=== PATIENT | male | born 1965 | race African-American/Black ===

== ENCOUNTER 2023-10-09 06:25 | Day surgery (SDC) | payer MEDICARE ==
[2023-10-08 09:12] VITALS: BMI 31.0
[2023-10-09] MEDS ORDERED: Dexamethasone 20 MG/5 ML VIAL ONE (06:54)
[2023-10-09] MEDS ORDERED: PROPOFOL 40 ML ONE (06:54)
[2023-10-09] MEDS ORDERED: fentaNYL PF 100 MCG/2 ML SYRINGE ONE (06:54)
[2023-10-09] MEDS ORDERED: Ondansetron PF 4 MG/2 ML Vial ONE (06:54)
[2023-10-09] MEDS ORDERED: Lidocaine 1% PF 5 ML VIAL ONE (06:54)
[2023-10-09] MEDS ORDERED: EPINEPHrine 1 MG/ML VIAL ONE (07:40)
[2023-10-09] MEDS ORDERED: SUGAMMADEX SODIUM 200 MG/2 ML VIAL ONE (08:02)
[2023-10-09] MEDS ORDERED: Rocuronium Bromide 10 MG/ML (10ML VIAL) ONE (08:02)
== END 2023-10-09 09:55 | disposition home or self-care (01) ==
LOC: SDC 06:25
PROVIDERS: ATTEND Otolaryngology Plastic Surgery within the Head & Neck
PROC: 0CBV8ZX Excision of Left Vocal Cord, Via Natural or Artificial Opening Endoscopic, Diagnostic (ICD-10-PCS; principal; 2023-10-09)
DX: J38.00 Paralysis of vocal cords and larynx, unspecified (principal); J38.3 Other diseases of vocal cords; J38.2 Nodules of vocal cords; J34.3 Hypertrophy of nasal turbinates; H91.90 Unspecified hearing loss, unspecified ear; G40.909 Epilepsy, unspecified, not intractable, without status epilepticus; E78.00 Pure hypercholesterolemia, unspecified; E11.9 Type 2 diabetes mellitus without complications; F41.9 Anxiety disorder, unspecified; F32.A Depression, unspecified; Z98.890 Other specified postprocedural states; Z79.899 Other long term (current) drug therapy
CPT/HCPCS: 31536; 93005; J0171; J1100; J2405; J2704; 88305; 93010

== ENCOUNTER 2023-12-09 21:55 | Inpatient (IN) | payer MEDICARE ==
[2023-12-09 23:30] VITALS: BMI 31.8
[2023-12-10] MEDS ORDERED: Acetaminophen 325 MG TAB PO PRN (00:37)
[2023-12-10] MEDS ORDERED: Acetaminophen 650 MG Suppository PR PRN (00:37)
[2023-12-10] MEDS ORDERED: Ondansetron PF 4 MG/2 ML Vial IVP PRN (00:37)
[2023-12-10] MEDS ORDERED: Ondansetron ODT 4 MG TAB PO PRN (00:37)
[2023-12-10] MEDS: QUEtiapine 100 MG TAB PO SCH ×2 (00:55→08:13)
[2023-12-10] MEDS: OXcarbazepine 150 MG TAB PO SCH ×2 (00:55→09:45)
[2023-12-10] MEDS: levETIRAcetam 500 MG TAB PO SCH ×2 (00:55→09:45)
[2023-12-10] MEDS: Enoxaparin 100 MG (1 mL) SYRINGE SC SCH ×2 (00:56→08:13)
[2023-12-10] MEDS: traZODone HCl 50 MG TAB PO SCH ×2 (01:03→21:24)
[2023-12-10] MEDS ORDERED: Glucagon 1 MG/ML KIT IM PRN (02:58)
[2023-12-10] MEDS ORDERED: Insulin Lispro 100 UNIT/ML 10 ML VIAL SC PRN ×2 (02:58)
[2023-12-10] MEDS ORDERED: Dextrose 50% Abboject 50 ML SYRINGE SLOW IVP PRN (02:58)
[2023-12-10] MEDS ORDERED: Dextrose 5% in Water 1,000 ML IV PRN (02:58)
[2023-12-10 07:00] LABS: #Basophils Less than 0.03 10x3/uL (0.0-0.2); %Basophils 0.2 % (0.0-1.0); %Eosinophils 0.9 % (0.0-10.0); %Lymphocytes 41.6 % (21.0-51.0); %Monocytes 12.9 % (0.0-10.0); %Neutrophils 44.2 % (42.0-75.0); Hematocrit 37.9 % (42.0-52.0); Hemoglobin 12.9 g/dL (14.0-18.0); Mean Corpuscular Hemoglobin 30.4 pg (27.0-31.0); Mean Corpuscular Volume 89.4 fL (78.0-98.0); Mean Platelet Volume 9.3 fL (7.4-10.4); Platelet Count 192 10x3/uL (130-400); RBC Distribution Width 13.4 % (11.5-14.5); Red Blood Cell (RBC) Count 4.24 mill/uL (4.70-6.10)
[2023-12-10 07:31] LABS: Anion Gap 13 mmol/L (10-20); BUN (Urea Nitrogen) 8 mg/dL (8.4-25.7); Calc. Creatinine Clearance 102 mL/min (70-130); Calcium 9.4 mg/dL (7.8-10.44); Carbon Dioxide 23 mmol/L (22-29); Chloride 105 mmol/L (98-107); Estimated GFR 77; Glucose 125 mg/dL (70-105); Potassium 4.1 mmol/L (3.5-5.1); Sodium 137 mmol/L (136-145)
[2023-12-10] MEDS: Lisinopril 5 MG TAB PO SCH (08:13)
[2023-12-10] MEDS ORDERED: metFORMIN 500 MG TAB PO PRN (08:40)
[2023-12-10] MEDS ORDERED: Non-Formulary Item 1 EACH (Hydroxyzine Hcl [Hydroxyzine Hcl] 50 MG Tablet) PO PRN (08:40)
[2023-12-10] MEDS ORDERED: Non-Formulary Item 1 EACH (Sertraline Hcl [Sertraline Hcl] 50 MG Tablet) PO SCH (09:00)
[2023-12-10] MEDS: Pantoprazole DR 40 MG TAB PO SCH (09:03)
[2023-12-10] MEDS: Sertraline 25 MG TAB PO SCH (09:03)
[2023-12-10] MEDS: Escitalopram Oxalate 10 mg Tablet PO SCH (09:04)
[2023-12-10] MEDS: Atorvastatin Calcium 10 MG TAB PO SCH (21:22)
[2023-12-10] MEDS: hydrOXYzine 25 MG TAB PO PRN (21:25)
[2023-12-11 07:27] VITALS: BP 139/80; TEMP 98.3
[2023-12-11 07:38] LABS: Hemoglobin 13.3 g/dL (14.0-18.0); Mean Corpuscular HGB CONC 34.1 g/dL (32.0-36.0); Mean Corpuscular Hemoglobin 30.8 pg (27.0-31.0); Mean Corpuscular Volume 90.3 fL (78.0-98.0); Mean Platelet Volume 9.6 fL (7.4-10.4); Platelet Count 203 10x3/uL (130-400); RBC Distribution Width 13.5 % (11.5-14.5); Red Blood Cell (RBC) Count 4.32 mill/uL (4.70-6.10)
[2023-12-11 07:51] LABS: INR-International Normal Ratio 1.1; PTT 41.2 sec (22.9-36.1)
[2023-12-11 07:53] LABS: D-Dimer Test 3.62 mcg/mL (0.27-0.43)
[2023-12-11 08:00] LABS: Anion Gap 14 mmol/L (10-20); BUN (Urea Nitrogen) 11 mg/dL (8.4-25.7); Calc. Creatinine Clearance 105 mL/min (70-130); Calcium 9.5 mg/dL (7.8-10.44); Carbon Dioxide 25 mmol/L (22-29); Chloride 104 mmol/L (98-107); Estimated GFR 81; Glucose 112 mg/dL (70-105); Potassium 4.1 mmol/L (3.5-5.1); Sodium 139 mmol/L (136-145)
[2023-12-11] MEDS ORDERED: OXcarbazepine 150 MG TAB PO SCH (09:00)
[2023-12-11] MEDS ORDERED: levETIRAcetam 500 MG TAB PO SCH (09:00)
[2023-12-11] MEDS ORDERED: QUEtiapine 100 MG TAB PO SCH (21:00)
[2023-12-12 19:36] LABS: Protein C Activity 102 % (78-152)
[2023-12-12 20:14] LABS: HEX PHOS LA Tube 1 54.1 SEC; HEX PHOS LA Tube 2 45.5 SEC; Hexagonal Phospholipid Neut 8.6 SEC (0-8.0)
[2023-12-13 12:20] LABS: Cardiolipin IgA Ab 5.8 APL-U/mL (<14 Negative); EliA APS New Method **** NEW METHOD ****
[2023-12-19 17:37] LABS: Activated Protein C Resistance 2.7 ratio (.)
== END 2023-12-11 10:10 | disposition home or self-care (01) | DRG 301 ==
LOC: T4-B 22:42 → OBSVTOIN 12-10 11:48
PROVIDERS: ADMIT Student in an Organized Health Care Education/Training Program; ATTEND Internal Medicine
DX: I82.402 Acute embolism and thrombosis of unspecified deep veins of left lower extremity (principal); E11.9 Type 2 diabetes mellitus without complications; Z79.899 Other long term (current) drug therapy; Z79.84 Long term (current) use of oral hypoglycemic drugs; G47.00 Insomnia, unspecified; Z98.890 Other specified postprocedural states; Z79.01 Long term (current) use of anticoagulants; Z66 Do not resuscitate; M79.604 Pain in right leg; I82.401 Acute embolism and thrombosis of unspecified deep veins of right lower extremity
CPT/HCPCS: 36415; 36416; 80048; 83090; 85025; 85027; 85300; 85303; 85305; 85307; 85598; 85610; 85730; 86147; 96372; G0378; J1650